=== PATIENT | male | born 2000 | race Caucasian/White ===

== ENCOUNTER 2019-11-02 15:46 | Outpatient (CLI) | payer OTHER, SELFPAY ==
--- NOTE | ~2019-11-02 | XR_ITS ---
XR knee LT 3V 11/02/2019 16:22 INDICATION: Hyperextension injury. Left knee pain. PROCEDURE: 3 views left knee COMPARISON: 07/25/2011 FINDINGS: Fracture, dislocation or subluxation is not identified. 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 N o significant joint effusion. The soft tissues appear within normal limits. No foreign bodies are id entified. IMPRESSION: 1: NO ACUTE BONE OR JOINT ABNORMALITY IDENTIFIED. Reviewed, dictated and finalized at location A.
== END 2019-11-02 15:47 | disposition home or self-care (01) ==
PROVIDERS: PCP Pediatrics; Visit Provider Internal Medicine
DX: S89.92XA Unspecified injury of left lower leg, initial encounter (principal)
CPT/HCPCS: 73562

== ENCOUNTER 2019-11-11 18:49 | Outpatient (CLI) | payer OTHER, SELFPAY ==
--- NOTE | ~2019-11-11 | MR_ITS ---
EXAMINATION: MR knee LT wo/w con DATE: 11/11/2019 19:54 INDICATION: Soccer injury with hyperextension of the left knee and persistent generalized left knee p ain. TECHNIQUE: Magnetic resonance imaging (MRI) of the left knee was performed without and with 15 mL Mul tihance intravenous contrast. Sequences included sagittal PD-weighted FSE, axial, sagittal and coron al T2-weighted FS FSE, sagittal and coronal T1-weighted FSE, axial T1-weighted FS FSE and postcontras t axial and coronal T1-weighted FS FSE. COMPARISON: Left knee radiographs dated 11/12/2019 FINDINGS: Osseous/other: Bone alignment is normal. Developmental variant multi partite patella with 2 small accessory unfused apophyseal centers at the superolateral margin of the patella. There is mild edema at the apophyseal centers and immediately adjacent patella which could represent a mild apophysitis. There is significa ntly more prominent marrow edema and enhancement at the medial femoral condyle centered along the med ial rim of the medial trochlea without a discrete fracture line likely representing a bone contusion. There is an additional small focus of marrow edema along the anterior margin of the proximal fibula all with mild surrounding soft tissue edema and enhancement along the anterior tibiofibular ligament but without discrete fluid signal intensity tear defect which could represent either additional contu nyasia or low-grade sprain. No marrow edema at the proximal tip of the fibula and the major stabilizing structures of the posterolateral corner including the fibular collateral ligament, biceps femoris te ndon, popliteus tendon, the popliteal fibular ligament, menisci popliteal fascicles in the patella fi bular ligaments all appear intact. No pathologic marrow replacing process. Medial compartment: Medial meniscus is normal. Articular cartilage is normal. Lateral compartment: Lateral meniscus is normal. Articular cartilage is normal. Patellofemoral compartment: Articular cartilage is normal. Ligaments and tendons: Anterior and posterior cruciate ligaments are normal. The medial collateral ligament is normal. As pr eviously noted the stabilizing ligaments of the posterolateral corner appear intact. The extensor mec hanism is normal. The visualized medial and lateral hamstring tendons as well as the iliotibial band are normal. The medial and lateral patellar retinacula appear normal. Fluid: Physiologic amount of fluid in the joint space. No loose osteochondral bodies identified. IMPRESSION: 1. Marrow edema along the medial rim of the medial trochlea without evident fracture line consistent with bone contusion. No evident injury to the patella or patellar retinacula to suggest patellar disl ocation/relocation injury. 2. Mild marrow edema at the anterior aspect of the proximal fibula which could represent additional b one contusion or reactive edema related to strain of the anterior tibiofibular ligament is also demon strates edema but no discrete fluid signal intensity tear defect. 3. Menisci, cartilage, cruciate ligaments and the medial and lateral collateral ligaments remain norm al. 4. Multipartite patella with mild marrow edema along the synchondrosis between the patella and a coup le small superolateral accessory apophyseal centers which could represent a mild apophysitis. Reviewed, dictated and finalized at location A. IMPRESSION: 1. Marrow edema along the medial rim of the medial trochlea without evident fra cture line consistent with bone contusion. No evident injury to the patella or patellar retinacula to suggest patellar dislocation/relocation injury. 2. Mild marrow edema at the anterior aspect of the proximal fibula which could represent additional bone contusion
[2019-11-11 19:20] LABS: Estimated Glomerular Filt Rate > 60
== END 2019-11-11 18:50 | disposition home or self-care (01) ==
PROVIDERS: PCP Internal Medicine; Visit Provider Internal Medicine
DX: S89.80XA Other specified injuries of unspecified lower leg, initial encounter (principal); X58.XXXA Exposure to other specified factors, initial encounter
CPT/HCPCS: 36415; 73723; A9577

== ENCOUNTER 2021-05-23 12:17 | Emergency (ER) | payer OTHER, SELFPAY ==
--- NOTE | ~2021-05-23 | XR_ITS ---
EXAMINATION: XR heel LT min 2V EXAM DATE: 05/23/2021 12:30 INDICATION: Left foot, heel pain, plays soccer. Initial encounter. TECHNIQUE: Calcaneal dorsal plantar and lateral projections. There are no prior studies for comparis on. FINDINGS: Small inferior calcaneal spur. There are no acute calcaneus fractures or dislocations iden tified. There is no subcutaneous gas. The soft tissue is unremarkable. There are no radiopaque fo reign bodies. IMPRESSION: Small inferior calcaneal spur. Reviewed, dictated and finalized at location A. RVENTIONAL PHYSICIAN
[2021-05-23 12:25] VITALS: BP 129/73; PULSE 78; RESP 16; TEMP 36.4; O2SAT 97
--- NOTE | 2021-05-23 14:00 | ED.LOWEXIN ---
HPI - Extremity Injury (Lower) General Chief Complaint: Extremity Problem,Nontraumatic Stated Complaint: L HEEL PAIN Source: patient and RN notes reviewed Limitations: no limitations History of Present Illness HPI Narrative: The patient, previously mostly healthy computer engineering technologist, presents with foot pain. Patient states he has a 1 week worsening of over 1 month history of left heel pain is mild, worse with motion, better at rest-and actually absent today. Symptoms are mild unrelieved with occasional NSAID use. No direct injury, redness, swelling; screening x-ray shows heel spur. Advised to follow-up with PMD or podiatry and to use provided therapy exercises, or get inserts/orthotics Related Data Home Medications Medication Instructions Recorded Confirmed ibuprofen [Advil] 200 mg PO Q6H PRN 05/31/19 11/05/19 Allergies Allergy/AdvReac Type Severity Reaction Status Date / Time No Known Allergies Allergy Unknown Verified 05/31/19 14:00 Review of Systems Review of Systems: General/Constitutional: No weight loss,fever Eyes: N0: Redness,discharge Ears/Nose/Throat: No: Epistaxis,ear discharge Respiratory: Denies: Hemoptysis Gastrointestinal: No Vomiting, Bleeding-rectal Skin: No Lumps, eruption Neurologic: No Focal Weakness,Sz Hematologic: Denies: Petechiae/Purpura Psychiatric: No: Suicida ideationl All Other Systems: Reviewed and Negative [facility] Family History Family History Grandparent Diabetes mellitus Family history of rheumatoid arthritis Family history of cardiovascular disease Social History Social History Smoking status: Never smoker Alcohol intake: never Comments At time of signature, agree with nursing past medical, surgical, social and family history. There is no relevant family history pertinent to the presenting complaint Exam Narrative: General Appearance: Well appearing, Conjunctiva clear Ears: External ear normal, Auditory canal normal Nose: Normal nose, Nares clear Mouth/Throat: Normal appearing, Normal lips Neck: Supple Respiratory: Airway patent, No respiratory distress MS- foot: Nl strength (mostly intact, unlimited flexion/extension), Tenderness (minimal calcaneal, with mild decreased ROM), no swelling , Other : Has high/good arches, no anterior drawer, no collateral laxity, no Achilles tenderness, no fifth metatarsal tenderness Skin: Warm, Dry, Normal color Neurological: A&O x3, , Normal affect Course Course Emergency Course: Films visualized, interpreted by radiologist, agree, ABnormal see report Vital Signs Vital signs: Vital Signs Temperature 97.6 F 05/23/21 12:25 Pulse Rate 78 05/23/21 12:25 Respiratory Rate 16 05/23/21 12:25 Blood Pressure 129/73 05/23/21 12:25 Pulse Oximetry 97 05/23/21 12:25 Temperature 97.6 F 05/23/21 12:25 Pulse Rate 78 05/23/21 12:25 Respiratory Rate 16 05/23/21 12:25 Blood Pressure 129/73 05/23/21 12:25 Pulse Oximetry 97 05/23/21 12:25 Discharge Plan Discharge Clinical Impression: Heel spur Qualifiers: Laterality: left Qualified Code(s): M77.32 - Calcaneal spur, left foot Patient Disposition: Home, Self-Care Condition: Stable Instructions: Plantar Fasciitis (ED) Prescriptions: New tramadol 50 mg tablet 50 - 75 mg PO BID PRN (Reason: pain) Qty: 20 RF: 0 prednisone 20 mg tablet 60 mg PO DAILY Qty: 15 RF: 0 No Action ibuprofen [Advil] 200 mg Tablet 200 mg PO Q6H PRN (Reason: Pain) RF: 0 Follow-up/Referrals: PHYSICIAN,MANA[facility] [employer] [Primary Care Provider] -
== END 2021-05-23 14:08 | disposition home or self-care (01) ==
PROVIDERS: Emergency Provider Emergency Medicine
DX: M77.32 Calcaneal spur, left foot (principal)
CPT/HCPCS: 73650; 99213; G0463

== ENCOUNTER 2021-10-21 10:02 | Emergency (ER) | payer OTHER, SELFPAY ==
[2021-10-21 10:18] VITALS: BP 134/71; PULSE 78; RESP 16; TEMP 36.7; O2SAT 99
[2021-10-21 10:36] VITALS: BP 134/71; PULSE 78; RESP 16; TEMP 36.7; O2SAT 99
--- NOTE | 2021-10-21 10:42 | ED.URI ---
HPI - URI/Sore Throat General Chief Complaint: Upper Respiratory Infection Stated Complaint: trouble swallowing,throat pain Time Seen by Provider: 10/21/21 10:22 Source: patient Mode of arrival: ambulatory Limitations: no limitations History of Present Illness HPI Narrative: Patient presents today complaining of a 2-day history of severe left-sided sore throat and difficulty swallowing due to severe pain. Denies any additional symptoms to include fever, cough, congestion, rhinorrhea, nausea, vomiting, diarrhea. He does still have his tonsils. He currently rates his pain 6/10 and has been taking DayQuil and Advil with relief. He has been vaccinated against COVID-19. Denies any known sick contacts. Related Data Home Medications Medication Instructions Recorded Confirmed ibuprofen 200 mg tablet (Advil) 200 mg PO Q6H PRN Pain 05/31/19 10/21/21 Allergies Allergy/AdvReac Type Severity Reaction Status Date / Time No Known Allergies Allergy Unknown Verified 10/21/21 10:25 Review of Systems Review of Systems: CONSTITUTIONAL: Denies body aches, fever, chills, or sweats. EYES: Denies visual changes, redness, or discharge. ENT: Denies rhinorrhea, congestion, or otalgia.+ Sore throat CARDIOVASCULAR: Denies chest pain, palpitations, or edema. RESPIRATORY: Denies cough or dyspnea. GASTROINTESTINAL: Denies abdominal pain, nausea, vomiting, or diarrhea. GENITOURINARY: Denies dysuria or hematuria. SKIN: Denies rash, itching, or wounds. MUSCULOSKELETAL: Denies back pain, joint pain, or myalgia. NEUROLOGIC: Denies headache, numbness, tingling, or weakness. PSYCH: Denies depression or anxiety. [facility] Family History Family History Grandparent Diabetes mellitus Family history of rheumatoid arthritis Family history of cardiovascular disease Social History Social History Smoking status: Never smoker Alcohol intake: never Comments At time of signature, I have reviewed and agree with nursing past medical, surgical, social and family history unless otherwise noted. Please see nursing chart for further information. There is no relevant family history pertinent to the presenting complaint Exam Narrative: GENERAL: Well-appearing, well-nourished, and in no acute distress. HEAD: Normocephalic, atraumatic. EYES: EOMI. No redness or drainage. Conjunctivae normal. ENT: Mucous membranes pink and moist. Nares clear. No rhinorrhea. TMs normal bilaterally. Throat moderately erythematous and mildly edematous. Small amount of exudate on the bilateral tonsils. Tonsils are 1-2+. Uvula midline. NECK: Normal AROM. Supple. No lymphadenopathy. CHEST: No respiratory distress. Clear to auscultation. HEART: Regular rate and rhythm. No murmur appreciated. Normal peripheral pulses. EXTREMITIES: Normal range of motion. No edema. SKIN: Warm, dry, no rash. Capillary refill normal. Normal skin turgor. NEURO: No focal deficits. Alert and oriented x3. Gait steady. PSYCH: Normal affect. No signs of depression or anxiety. Course Course Level of Care: Express Care Visit Vital Signs Vital signs: Vital Signs Temperature 98.1 F 10/21/21 10:18 Pulse Rate 78 10/21/21 10:18 Respiratory Rate 16 10/21/21 10:18 Blood Pressure 134/71 10/21/21 10:18 Pulse Oximetry 99 10/21/21 10:18 Oxygen Delivery Room Air 10/21/21 10:18 Temperature 98.1 F 10/21/21 10:36 Pulse Rate 78 10/21/21 10:36 Respiratory Rate 16 10/21/21 10:36 Blood Pressure 134/71 10/21/21 10:36 Pulse Oximetry 99 10/21/21 10:36 Oxygen Delivery Room Air 10/21/21 10:36 Reviewed. Pt has been instructed to follow up with his PCP regarding his elevated blood pressure today. MDM - URI/Sore Throat Differential Diagnosis Differential diagnosis: Likely upper respiratory infection, viral infection, pharyngitis and other (St
== END 2021-10-21 11:10 | disposition home or self-care (01) ==
PROVIDERS: Emergency Provider Nurse Practitioner
DX: J02.9 Acute pharyngitis, unspecified (principal); Z20.822 Contact with and (suspected) exposure to COVID-19
CPT/HCPCS: 87081; 87426; 87880; 99204; C9803; G0463

== ENCOUNTER 2023-01-04 12:48 | Outpatient (CLI) | payer OTHER, SELFPAY | END 2023-01-04 12:49 | disposition home or self-care (01) | PROVIDERS: PCP Family Medicine | DX: Z13.0 Encounter for screening for diseases of the blood and blood-forming organs and certain disorders involving the immune mechanism (principal) | CPT/HCPCS: 36415; 85660 ==